=== PATIENT | male | born 1980 | race African-American/Black ===

== ENCOUNTER 2025-04-07 13:09 | Inpatient (IN) | payer OTHER ==
[2025-04-07 13:58] VITALS: BMI 20.7
[2025-04-07] MEDS ORDERED: MAG HYDROX/AL HYDROX/SIMETH 30 ML UNIT-DOSE CUP PO PRN (14:09)
[2025-04-07] MEDS ORDERED: NICOTINE POLACRILEX 2 MG GUM BUC PRN (14:09)
[2025-04-07] MEDS ORDERED: BENZONATATE 200 MG CAPSULE PO PRN (14:09)
[2025-04-07] MEDS ORDERED: LOPERAMIDE HCL 2 MG CAPSULE PO PRN (14:09)
[2025-04-07] MEDS ORDERED: BENZOCAINE/MENTHOL (CHLORASEPTIC ) LOZENGE MM PRN (14:09)
[2025-04-07] MEDS ORDERED: ACETAMINOPHEN 325 MG TABLET (FP) PO PRN (14:09)
[2025-04-07] MEDS ORDERED: hydrOXYzine PAMOATE 25 MG CAPSULE (FP) PO PRN (14:09)
[2025-04-07] MEDS ORDERED: guaiFENesin 600 MG TABLET.ER (FP) PO PRN (14:09)
[2025-04-07] MEDS ORDERED: NALOXONE (NARCAN) HCL 4 MG/0.1 ML SPRAY NS PRN (14:09)
[2025-04-07] MEDS ORDERED: MAGNESIUM HYDROX 2400MG/30ML ORAL SUSPENSION 30 ML CUP PO PRN (14:09)
[2025-04-07] MEDS ORDERED: IBUPROFEN 400 MG TABLET (FP) PO PRN (14:09)
[2025-04-07] MEDS ORDERED: POLYETHYLENE GLYCOL (HEALTHYLAX) 3350 17 GM PACKET PO PRN (14:09)
[2025-04-07] MEDS ORDERED: amLODIPine BESYLATE 5 MG TABLET (FP) ONE (17:43)
[2025-04-07] MEDS: amLODIPine BESYLATE 10 MG TABLET (FP) PO ONE (17:44)
[2025-04-07] MEDS: TUBERCULIN PPD 5 TU/0.1ML SYRINGE (IN PATIENT USE ONLY) ID ONE (18:43)
[2025-04-07] MEDS: MELATONIN 5 MG TABLETS PO SCH (22:21)
[2025-04-07] MEDS: THIAMINE 100 MG TABLET PO SCH (22:21)
[2025-04-07] MEDS: IBUPROFEN 600 MG TABLET (FP) PO PRN (22:22)
[2025-04-08] MEDS: PRENATAL VITAMINS W/ FOLIC ACID TABLET (FP) PO SCH (09:56)
[2025-04-08] MEDS ORDERED: hydrOXYzine PAMOATE 25 MG CAPSULE (FP) PO PRN (10:49)
[2025-04-08 11:15] LABS: MCHC 31.7 g/dl (32.3-36.5); MEAN CELL VOLUME 97.4 fl (79.0-92.2); MEAN PLT VOLUME 10.9 fl (9.4-12.4); RDW 12.3 % (12.1-15.9)
[2025-04-08] MEDS: amLODIPine BESYLATE 10 MG TABLET (FP) PO SCH (11:40)
[2025-04-08 12:14] LABS: GLUCOSE,RANDOM 123.0 mg/dL (74-106); TOT PROT 8.1 g/dl (6.4-8.2)
[2025-04-08 12:15] LABS: CO2 23.0 mmol/L (21-32)
[2025-04-08 12:17] LABS: ALK PHOS 65.0 U/L (40-150)
[2025-04-08 12:20] LABS: CREATININE 1.07 mg/dL (0.55-1.3); SGOT/AST 51.0 U/L (5-34); SGPT/ALT 65.0 U/L (0-55)
[2025-04-08 15:04] LABS: SYPHILIS W/ RPR CONF NON-REACTIVE (NONREACTIVE)
[2025-04-08 18:24] LABS: HCV DIAGNOSTIC IN-HOUSE W/RFLX NON-REACTIVE (NONREACTIVE)
[2025-04-09 05:50] LABS: URINE APPEARANCE CLEAR; URINE BILIRUBIN NEGATIVE (NEGATIVE); URINE COLOR YELLOW; URINE GLUCOSE (UA) NEGATIVE (NEGATIVE); URINE KETONE NEGATIVE (NEGATIVE); URINE LEUK ESTERASE NEGATIVE (NEGATIVE); URINE NITRITE NEGATIVE (NEGATIVE); URINE PROTEIN NEGATIVE (NEGATIVE); URINE UROBILINOGEN 0.2 mg/dL (0.2-1.0)
[2025-04-09] MEDS ORDERED: amLODIPine BESYLATE 10 MG TABLET (FP) PO SCH (10:00)
[2025-04-13] MEDS: NICOTINE POLACRILEX 2 MG LOZENGE BC PRN (21:08)
[2025-04-15] MEDS: NALTREXONE HCL 50 MG TABLET PO SCH (17:14)
[2025-04-15] MEDS: MELATONIN 5 MG TABLETS PO SCH (21:12)
[2025-04-15] MEDS: BACLOFEN 10 MG TABLET (FP) PO SCH (21:12)
[2025-04-15] MEDS: MIRTAZAPINE 15 MG TABLET (FP) PO SCH (21:13)
[2025-04-16 11:36] LABS: INR 0.95 (0.83-1.09); PROTHROMBIN TIME (PATIENT) 10.4 SEC (9.7-13.0)
[2025-04-16] MEDS: SODIUM CHLORIDE NASAL SPRAY 44 ML BOTTLE NS PRN (21:22)
[2025-04-20] MEDS: MAGNESIUM OXIDE 400 MG TABLET (FP) PO SCH (10:49)
[2025-04-20] MEDS: CHOLECALCIFEROL (VIT D3) 400 UNIT (10 MCG) TABLET PO SCH (10:49)
[2025-04-21] MEDS: NALTREXONE HCL 50 MG TABLET PO SCH (10:17)
[2025-05-03] MEDS: NICOTINE POLACRILEX 4 MG GUM BUC PRN (10:19)
[2025-05-04 07:53] VITALS: RESP 16
[2025-05-04] MEDS: NALTREXONE MICROSPHERES (VIVITROL) 380 MG DISP.SYRIN IM ONE (11:20)
[2025-05-05 05:25] VITALS: TEMP 97.5
[2025-05-05 09:24] VITALS: BP 124/85; PULSE 103
== END 2025-05-05 09:51 | disposition home or self-care (01) | DRG 772 ==
LOC: YASAS 13:09 → Y3NR 17:36 → Y3W 04-08 10:14
PROVIDERS: ADMIT Neuromusculoskeletal Medicine & OMM; ATTEND Psychiatry & Neurology Pain Medicine
PROC: HZ42ZZZ Group Counseling for Substance Abuse Treatment, Cognitive-Behavioral (ICD-10-PCS; principal; 2025-04-07)
DX: F16.20 Hallucinogen dependence, uncomplicated (principal); F12.20 Cannabis dependence, uncomplicated; F14.10 Cocaine abuse, uncomplicated; F17.210 Nicotine dependence, cigarettes, uncomplicated; F19.24 Other psychoactive substance dependence with psychoactive substance-induced mood disorder; I10 Essential (primary) hypertension
CPT/HCPCS: 36415; 80053; 80307; 81003; 82140; 82652; 82962; 83735; 85027; 85610; 86780; 86803; 93005; 93010; J0475